=== PATIENT | female | born 2000 | race African-American/Black ===

== ENCOUNTER → 2020-11-24 | Outpatient (CLI) | payer OTHER ==
--- NOTE | 2020-11-24 13:08 | REP ---
INDICATION: FALL, NASAL BONE INJURY. COMPARISON: None. TECHNIQUE: There are three views. FINDINGS: No nasal bone fracture is identified. The orbital rims are intact. The paranasal sinuses are unremarkable. The skull base and sella turcica are unremarkable. IMPRESSION: No nasal bone fracture. <Electronically signed by Valentín De La Cruz > 11/24/20 [id number]
== END ==
LOC: M LAB 12:46
PROVIDERS: ATTEND Physician Assistant Medical
DX: S00.33XA Contusion of nose, initial encounter (principal); W01.0XXA Fall on same level from slipping, tripping and stumbling without subsequent striking against object, initial encounter; Y92.9 Unspecified place or not applicable

== ENCOUNTER → 2021-03-14 | Outpatient (CLI) | payer OTHER ==
[2021-03-14 16:10] LABS: BASO % 0.5 % (0.0-1.0); EOS % 0.4 % (0.0-3.0); HEMOGLOBIN 12.2 g/dl (12.0-15.5); LYMPH # 1.6 10^3/uL (1.5-5.0); MEAN CORPUSCULAR HEMOGLOBIN 30.2 pg (27.0-33.0); MEAN CORPUSCULAR HGB CONC 32.1 g/dl (32.0-36.5); MEAN CORPUSCULAR VOLUME 94.1 fl (80.0-96.0); MONO # 0.4 10^3/uL (0.0-0.8); MONO % 7.2 % (2.0-8.0); NEUTROPHILS # 3.5 10^3/uL (1.5-8.5); NEUTROPHILS % 62.7 % (36.0-66.0); PLATELET COUNT, AUTOMATED 284 10^3/uL (150-450); RED BLOOD COUNT 4.04 10^6/uL (4.00-5.40); WHITE BLOOD COUNT 5.6 10^3/uL (4.0-10.0)
== END ==
LOC: M WUC 13:21
PROVIDERS: ATTEND Physician Assistant
DX: R59.0 Localized enlarged lymph nodes (principal)

== ENCOUNTER → 2021-03-25 | Outpatient (CLI) | payer OTHER ==
--- NOTE | 2021-03-25 13:24 | REP ---
INDICATION: LEFT AXILLARY NODULE. COMPARISON: None. TECHNIQUE: Left axillary ultrasound. FINDINGS: Real-time sonographic evaluation of left axilla performed. A lymph node is visualized which is oval in shape, well-defined, with a fatty echogenic hilum. This measures 1.5 x 0.5 x 0.9 cm. IMPRESSION: Morphologically normal appearing lymph node left axilla at the site of a reported palpable abnormality, with a fatty echogenic hilum. Short axis dimension is normal. <Electronically signed by Valentín Chino > 03/25/21 [id number]
--- NOTE | 2021-03-25 13:26 | REP ---
INDICATION: RIGHT BREAST LUMP, LEFT AXILLARY NODULE. COMPARISON: None TECHNIQUE: Real-time sonographic evaluation of right breast performed at the site of a reported palpable abnormality 1-2 o'clock. FINDINGS: There is no sonographic evidence of cystic or solid mass in the region of the palpable lump, 1-2 o'clock right breast. IMPRESSION: BIRADS/ACR category 1, negative ultrasound right breast 1-2 o'clock region. RECOMMENDATION: A negative ultrasound should not deter biopsy if there is a clinically suspicious palpable mass present. Clinical correlation and follow-up recommended. <Electronically signed by Valentín Chino > 03/25/21 [id number]
== END ==
LOC: M WHC 12:10
PROVIDERS: ATTEND Physician Assistant
DX: N63.12 Unspecified lump in the right breast, upper inner quadrant (principal); R59.0 Localized enlarged lymph nodes; R92.8 Other abnormal and inconclusive findings on diagnostic imaging of breast